=== PATIENT | male | born 1965 | race Caucasian/White ===

== ENCOUNTER 2022-03-30 22:34 | Emergency (ER) | payer OTHER ==
[2022-03-30 23:39] LABS: BASOPHIL 0.3 % (0-2); EOSINOPHIL 1.2 % (0-5); HCT 41.8 % (42.0-52.0); HGB 14.9 g/dl (13.2-18.0); LYMPHOCYTE 26.4 % (15-48); MCH 31.4 pg (25.0-31.0); MCHC 35.6 g/dL (32.0-36.0); MONOCYTE 8.1 % (0-12); MPV 10.2 fL (6.0-9.5); NEUTROPHIL 63.6 % (41-80); NRBC 0; PLT 243 K/uL (150-400); RBC 4.75 M/uL (4.70-6.00); RDW 12.5 % (11.5-14.0); WBC 11.5 K/uL (4.0-10.5)
[2022-03-30 23:51] LABS: ALBUMIN 3.9 g/dL (3.4-5.0); BILIRUBIN - TOTAL 0.8 mg/dL (0.2-1.0); BUN/CREAT RATIO (CALC) 13.2 RATIO; CREATININE 1.29 mg/dL (0.67-1.17); POTASSIUM 3.6 mmol/L (3.5-5.1); TOTAL PROTEIN 6.9 g/dL (6.4-8.2)
[2022-03-31 02:55] LABS: BILIRUBIN NEGATIVE (NEGATIVE); BLOOD 3+ Ery/uL (NEGATIVE); CLARITY CLEAR (CLEAR); COLOR YELLOW (YELLOW); GLUCOSE (U) NORMAL (NORMAL); LEUKOCYTES NEGATIVE Leu/uL (NEGATIVE); NITRITE NEGATIVE (NEGATIVE); PROTEIN NEGATIVE (NEGATIVE); SPECIFIC GRAVITY 1.025 (1.001-1.030); UROBILINOGEN 0.2 mg/dL (0.2-1.0)
[2022-03-31 03:08] LABS: BACTERIA TRACE; SQUAMOUS EPITHELIAL CELLS RARE; URINARY WBC RARE
[2022-03-31] MEDS ORDERED: ONDANSETRON ODT4 MG PO (03:27)
[2022-03-31] MEDS ORDERED: FLOMAX0.4 MG PO (03:27)
[2022-03-31] MEDS ORDERED: NORCO 5-325 TA1 EACH PO (03:27)
== END 2022-03-31 03:55 | disposition home or self-care (01) ==
LOC: FER 22:34
PROVIDERS: Emergency Medicine
DX: N13.2 Hydronephrosis with renal and ureteral calculous obstruction (principal); I10 Essential (primary) hypertension
CPT/HCPCS: 36415; 80053; 81001; 83690; 84484; 85025; J1170; J1885; J7030